=== PATIENT | male | born 1970 | race Caucasian/White ===

== ENCOUNTER 2016-12-23 12:34 | Emergency (ER) | payer BC ==
[2016-12-23] MEDS ORDERED: MORPHINE 4 MG/ML SYR ONE (13:42)
[2016-12-23] MEDS ORDERED: ONDANSETRON 4 MG VIAL ONE (13:43)
== END 2016-12-23 15:31 | disposition home or self-care (01) ==
LOC: ER 12:34
DX: M54.5 Low back pain (principal); R10.9 Unspecified abdominal pain; Z79.899 Other long term (current) drug therapy; Z87.891 Personal history of nicotine dependence
CPT/HCPCS: 36415; 74176; 80053; 81001; 83690; 85025; 96374; 96375